=== PATIENT | female | born 1970 | race American Indian/Alaskan Native ===

== ENCOUNTER 2018-04-24 09:03 | Outpatient (CLI) | payer OTHER ==
--- NOTE | 2018-04-28 16:40 | Magnetic Resonance Report ---
BILATERAL BREAST MRI WITHOUT AND WITH CONTRAST: 04/24/18 09:03:00 CLINICAL: Recent abnormal mammogram. A recent mammogram describes right nipple inversion and right duct ectasia. COMPARISON:None.. TECHNIQUE: Axial 1.0-mm T1 without, axial high resolution 2.0-mm T2 and axial 1.0-mm dynamic Vibrant high-resolution postcontrast T1 fat saturation sequences on a 1.5 Rosa magnet. The examination was performed with an 8 channel dedicated [place] breast coil. Post processing with CAD and subtraction was performed on an [facility] workstation. 15.0 cc of Multihance was injected for the contrast portion of the exam. Consent was obtained prior to the administration of the contrast. She became nauseated and vomited after the injection of contrast. The nausea passed and she was able to complete the exam. FINDINGS: Right: Marked background parenchymal enhancement. The right nipple is not inverted. No mass or suspicious enhancement. Several benign cysts. The largest measures approximately 1.5 cm and is located at 9 o'clock. No suspicious right axillary or right internal mammary lymph nodes. Left: Marked background parenchymal enhancement. No mass or suspicious enhancement. No suspicious left axillary or left internal mammary lymph nodes. IMPRESSION: Negative study with a few benign cysts and no right nipple inversion. BI-RADS 2 - - Benign
== END 2018-04-24 09:04 | disposition home or self-care (01) ==
LOC: SPVIMAG 09:03
PROVIDERS: ATTEND Surgery
DX: R92.2 Inconclusive mammogram (principal)
CPT/HCPCS: A9577; C8908; 77059

== ENCOUNTER 2018-10-16 14:54 | Outpatient (CLI) | payer OTHER ==
--- NOTE | 2018-10-16 16:04 | Mammography Report ---
Bilateral Tomomammogram and 2-D image reconstruction: Patient with right nipple retraction noted on prior mammogram. Patient previously unaware of retraction and no progressive changes. The 2-D views demonstrate a heterogeneously dense fibroglandular pattern. The pattern is diffuse and symmetrically distributed. There is no focal mass and there is no architectural distortion. The right nipple does appear to be symmetrically and slightly retracted compared to the left. Orthogonal tomomammograms of the left breast show no additional findings. On the right side there are several small circumscribed and partially circumscribed nodules in the central breast. No scarring is identified. An MR scan several months ago identified several small cysts in the right breast with no other significant finding. CAD views. An ultrasound has been performed at your office. Impression: Mild nipple retraction with no apparent etiology. Several small circumscribed right breast nodules. Recommendation: The patient has both recent and old mammograms in her possession and will bring these for comparison to the current exam. The final recommendation will be made after comparison. BI-RADS CATEGORY: 0 = Needs additional imaging evaluation ACR BI-RADS MAMMOGRAPHIC CODES: 0 = Needs additional imaging evaluation; 1 = Negative; 2 = Benign; 3 = Probably benign; 4 = Suspicious; 5 = Malignant; 6 = Known biopsy-proven malignancy COMMENT: 1. Dense breast tissue, i.e., adenosis, fibrocystic changes, etc., may obscure an underlying neoplasm. 2. Approximately 10% of cancers are not detected with mammography. 3. A negative mammography report should not delay biopsy if a clinically suspicious mass is present.
== END 2018-10-16 14:55 | disposition home or self-care (01) ==
LOC: SPVWC 14:54
PROVIDERS: ATTEND Surgery
DX: N63.10 Unspecified lump in the right breast, unspecified quadrant (principal)
CPT/HCPCS: 77066; G0279

== ENCOUNTER 2019-05-26 08:20 | Outpatient (CLI) | payer OTHER ==
--- NOTE | 2019-05-26 14:19 | Mammography Report ---
DIGITAL DIAGNOSTIC MAMMOGRAM WITH CAD, WITH TOMOSYNTHESIS -- 05/26/2019 INDICATION: Follow-up right nipple retraction. She had a negative MRI 04/24/2018. TECHNIQUE: Digital right mammographic imaging was performed. This examination was interpreted with the benefit of Computer-aided Detection analysis. COMPARISON: 10/16/2018 FINDINGS: Breast Density: The breasts are heterogeneously dense, which may obscure small masses. There is no evidence of dominant mass, suspicious calcifications or architectural distortion in the l eft breast. Stable appearance of the right nipple. The nipple is slightly sunken but not retracted. IMPRESSION: Stable probably benign findings at the right nipple. Follow up recommendation: Short term follow up in 6 months. BI-RADS Category 3: Probably Benign. Followup in 6 months. A "normal" or negative report should not discourage follow up or biopsy of a clinically significant f inding. A written summary of these findings will be mailed to the patient. The patient will be entered into a mammography reporting system which will generate a reminder letter for the patient's next appointmen t at the appropriate interval. According to the [employer], yearly mammograms are recommended starting at age 40 and continuing as long as a woman is in good health. Breast MRI is recommended for women with an hoang roximately 20-25% or greater lifetime risk of breast cancer, including women with a strong family his tory of breast or ovarian cancer and women who have been treated for Hodgkin's disease. Signer Name: Dav Roberts MD Signed: 05/26/2019 2:14 PM Workstation Name: [id number]
== END 2019-05-26 08:21 | disposition home or self-care (01) ==
LOC: SPVWC 08:20
PROVIDERS: ATTEND Surgery
DX: R92.8 Other abnormal and inconclusive findings on diagnostic imaging of breast (principal)
CPT/HCPCS: 77065; G0279